=== PATIENT | female | born 1995 | race African-American/Black ===

== ENCOUNTER 2016-06-30 11:50 | Emergency (ER) | payer BC ==
[~2016-06-30] VITALS: Ht 175.3 cm; Wt 68.0 kg
[2016-06-30] MEDS ORDERED: IPRATROPIUM BROMIDE 0.5 MG/2.5 ML NEB SOLUTION NEB ONE (15:15)
[2016-06-30] MEDS ORDERED: ALBUTEROL SULFATE 2.5 MG/0.5 ML NEB SOLUTION NEB ONE (15:15)
[2016-06-30] MEDS ORDERED: IBUPROFEN 600 MG TABLET PO ONE (15:45)
[2016-06-30 16:17] VITALS: BP 122/72
[2016-06-30] MEDS ORDERED: PredniSONE 20 MG TABLET PO ONE (16:30)
[2016-06-30] MEDS ORDERED: ALBUTEROL SULFATE HFA 90 MCG/PUFF 8 GM INHALER IH ONE ×2 (16:30)
== END 2016-06-30 16:54 | disposition home or self-care (01) ==
LOC: EMS 11:52
DX: J98.01 Acute bronchospasm (principal); F17.210 Nicotine dependence, cigarettes, uncomplicated
CPT/HCPCS: 94640; 99284; J7512; J7613; J3535